=== PATIENT | female | born 1980 | race Caucasian/White ===

== ENCOUNTER → 2017-04-16 | Outpatient (CLI) | payer OTHER | END | disposition home or self-care (01) | LOC: C.RDSM 14:43 | PROVIDERS: ATTEND Physical Medicine & Rehabilitation Sports Medicine | DX: M25.561 Pain in right knee (principal) ==

== ENCOUNTER → 2017-05-13 | Outpatient (CLI) | payer OTHER ==
--- NOTE | 2017-05-13 17:13 | DIAGNOSTIC IMAGING REPORT ---
R LOWER EXT JOINT WITHOUT CLINICAL HISTORY: 36 years-old Female presenting with RIGHT KNEE PAIN. TECHNIQUE: Multisequence, multiplanar MR imaging of the right knee was performed without the use of intravenous contrast. IV contrast: None. COMPARISON: 04/22/2015. FINDINGS: Localizer images: 2 screw fixation through the proximal tibial metaphysis. Bone marrow: Focal cystic change in the tibial plateau subjacent to the insertion of the posterior cruciate ligament. Minimal cystic change noted more anteriorly in the interspinous region of the tibial plateau. No bony edema. Articular cartilage: Less than 50% thickness cartilage injury or thinning evident in the mid weightbearing portion of the medial femoral condyle and the apposing medial tibial plateau. Similar findings evidence at the mid to posterior weightbearing surface of the lateral femoral condyle without changes the apposing lateral tibial plateau. Full-thickness cartilage fissuring in the lateral trochlear facet with significant diffuse cartilage thinning at the patellofemoral articulation and prominent osteophytosis. Full-thickness cartilage loss of the majority of the lateral patellar facet. These findings have slightly progressed since the prior exam. Deep fissuring of the median prominence cartilage of the patella also noted. Menisci: Medial and lateral menisci intact. Cruciate ligaments: Anterior and posterior cruciate ligaments intact. Collateral ligament: Medial collateral ligament intact. Lateral collateral ligament complex including the biceps femoris tendon, fibular collateral ligament, popliteal tendon, and iliotibial band intact. Quadriceps and patellar tendons: Postsurgical changes of the reinsertion of the distal fibers the patellar tendon into the tibial plateau. The quadriceps and patellar tendons are intact. Knee joint effusion: Small knee joint effusion with possible mild synovitis. No popliteal cyst. Muscle: Normal muscle bulk and muscle signal intensity. Superficial soft tissues: Nonspecific edema in the infrapatellar region, which may in part relate to postsurgical change. IMPRESSION: 1. Interval progression of significant articular cartilage abnormalities in the patellofemoral compartment most severe in the lateral facet as detailed above. 2. More mild articular cartilage abnormalities of the mid to posterior weightbearing surface of the lateral femoral condyle and mid weightbearing surface of the medial compartment. 3. Two screw fixation through the proximal tibial metaphysis with postsurgical changes of reinsertion of the distal fibers of the patellar tendon. Patellar tendon intact. 4. Small knee joint effusion with possible mild synovitis. Electronically signed by: Dave Newby M.D. 05/13/2017 5:11 PM Dictated Date/Time: 05/13/2017 5:03 PM
== END | disposition home or self-care (01) ==
LOC: C.MRIBC 16:13
PROVIDERS: ATTEND Physician Assistant
DX: M17.11 Unilateral primary osteoarthritis, right knee (principal); M23.91 Unspecified internal derangement of right knee; M25.461 Effusion, right knee

== ENCOUNTER 2020-06-16 11:21 | Inpatient (IN) ==
--- NOTE | 2020-06-16 11:43 | Emergency Department Note ---
Impression & Plan Acute hypoxemic respiratory failure due to COVID-19, Pneumonia due to COVID-19 virus ED Provider Note NAME: LIVE TSANG AGE: 39 SEX: F : 1980 ARRIVES VIA: Walk-In INFORMANT: Patient, ED PROVIDER(S): Everette Moralez MD Chief Complaint: Shortness of breath, cough, COVID-19 HPI: Patient does present with the above symptoms. The patient states that she initially became symptomatic on the nd tested positive on the . The patient has had progressively worsening symptoms and was recently seen in the emergency department. The patient had been called in some steroids by her PCP but they were without directions the patient is not taking these. The patient did notice that her pulse oximetry was 89% today. The patient denies any prior heart or lung history. The patient has had cough but it is been fairly dry. No history of recent travel, DVT or PE. The patient denies any leg swelling recent surgeries or procedures. Patient has remote history of a right knee procedure years ago. Patient has had nausea but without vomiting. Patient said decreased p.o. intake and loss of taste or smell. Patient believes that she likely got it from her son who tested positive. The patient has been taking [id number] antipyretics. The patient had a low-grade temperature this morning. The pat ient did trial her inhalers but without improvement in her symptoms. ROS: See HPI for pertinent positives and negatives. A total of 10 systems were reviewed and otherwise negative. Past medical history: See below Surgical history: See below Social history: See below Physical Exam: GENERAL: Ill in appearance, wearing a mask. EYE EXAM: Normal conjunctiva. PERRL, no anisocoria and EOM's grossly intact w/o pain. NECK: Supple, no nuchal rigidity, no adenopathy, non-tender. No signs of meningismus. Not stridulous. LUNGS: Tachypnea noted, slight crackles noted. HEART: Tachycardic and regular, no MRG. ABDOMEN: Abdomen soft, non-tender, normo-active bowel sounds, no masses, no rebound or guarding. BACK: No CVA TTP. SKIN: No rashes and no bruising. UPPER EXTREMITIES: Upper extremities are grossly normal. LOWER EXTREMITIES: Grossly normal, no edema. NEURO EXAM: A&O x3, cranial nerves II-XII grossly intact, normal speech, moves all 4 extremities on command w/o issue. Differential diagnoses: Reactive airway disease, pneumonia, pneumothorax, COPD, CHF, infections, cardiac ischemia, pulmonary embolism, musculoskeletal, gastrointestinal, as well as other pathologies. Course: Patient was seen and evaluated the bedside. Full history physical exam was performed. EKG interpreted by me Indication: Shortness of breath Imaging Studies: See below Cardiac monitoring: An order was placed for continuous cardiac monitoring. The monitor shows a rate of 105 with sinus tachycardia rhythm. MDM: Patient was seen due to concern for shortness of breath and recent COVID-19 illness. The patient did have mild tachypnea primarily while trying to move in the bed as well as with speaking. At rest the patient's respiratory rate is improved. Patient had tried taking inhalers this morning but without much improvement. Given the patient's pulse oximetry of 89% at home blood work is obtained and the patient was treated symptomatically with Toradol, Tylenol, and dexamethasone. The patient was also given IV fluids. Repeat Covid testing obtained. Patient did have improvement in symptoms and tachypnea. Patient has a normal white count H&H and platelet count. Kidney function is unremarkable. Mild hypocalcemia. I did speak with the on-call hospitalist Dr. Perez with [facility] and the patient was admitted to the medicine service. Chest x-ray does show viral type pneumonia. 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 Beliefs That Will Affect Care: None Current Living Situation: Spouse and Family Other Information That Helps Us Care for You: Yes Feels Safe at Home: Yes Safety Concerns: Feels Safe At This Time Assistive Devices: Glasses Allergies Allergies Allergy/AdvReac Type Severity Reaction Status Date / Time Penicillins Allergy Intermediate Unknown Verified 06/14/20 19:21 sertraline Allergy Mild eyes dilate Verified 06/14/20 19:21 Home Meds Home Medications Medication Instructions Recorded Confirmed duloxetine 60 mg PO DAILY 06/10/20 06/16/20 lorazepam 0.5 mg PO BID PRN 06/10/20 06/16/20 acetaminophen [Tylenol Extra 1,000 mg PO Q6H PRN 06/14/20 06/16/20 Strength] ibuprofen [Advil] 200 mg PO Q6H PRN 06/14/20 06/16/20 Previous Rx's Medication Instructions Recorded albuterol sulfate 2 inh INHALATION Q6H PRN #8.5 g 06/10/20 ondansetron 4 mg PO Q8H PRN #12 tab 06/10/20 Results & Data (ED) Vital Signs Vital Signs - 24 hr 06/16/20 11:25 06/16/20 11:50 Temperature 35.9 C L Temperature Source Temporal Artery Scan Pulse Rate 117 H 72 Pulse Rhythm Regular Regular Pulse Strength Normal Respiratory Rate 40 H 20 Respiratory Effort / Characteristics Short of Breath Respiratory Depth Shallow Respiratory Pattern Tachypnea Blood Pressure 107/63 Blood Pressure Mean 77 Blood Pressure Position Sitting Pulse Oximetry 96 97 Oxygen Delivery Method Room Air Room Air Sepsis Recent Fever Within 48 Hours No Sepsis New/Unexplained Change in Mental Status No Sepsis Action Taken by Nursing Physician Notified Home Medications Current Medication List: was personally reviewed by me Laboratory Data Attestation: I reviewed the patient's lab results. Result diagrams: 06/16/20 12:24 06/16/20 12:24 Lab Results 06/16/20 06/16/20 Range/Units 12:24 12:24 WBC 5.88 (4.8-10.8) K/uL RBC 4.95 (4.2-5.4) M/uL Hgb 14.2 (12.0-16.0) g/dL Hct 41.1 (37-47) % MCV 83.0 (80-100) fL MCH 28.7 (25-34) pg MCHC 34.5 (32-36) g/dL RDW Std Deviation 43.4 (36.4-46.3) fL RDW Coeff of Rayo 14.3 (11.5-14.5) % Plt Count 187 (130-400) K/uL MPV 11.2 H (7.4-10.4) fL Immature Gran % (Auto) 0.2 % Neut % (Auto) 79.0 % Lymph % (Auto) 14.5 % [place] % (Auto) 5.8 % Eos % (Auto) 0.5 % Baso % (Auto) 0.0 % Neut # (Auto) 4.65 (1.4-6.5) K/uL Lymph # (Auto) 0.85 L (1.2-3.4) K/uL [place] # (Auto) 0.34 (0.11-0.59) K/uL Eos # (Auto) 0.03 (0-0.5) K/uL Baso # (Auto) 0.00 (0-0.2) K/uL Immature Gran # (Auto) 0.01 (0.00-0.02) K/uL Sodium 137 (136-145) mmol/L Potassium 4.1 (3.5-5.1) mmol/L Chloride 105 (98-107) mmol/L Carbon Dioxide 27 (21-32) mmol/L Anion Gap 5.0 (3-11) BUN 7 (7-18) mg/dl Creatinine 0.86 (0.6-1.2) mg/dl Est Cr Clr Drug Dosing Not Reportable Est GFR ( Amer) 100.0 Est GFR (Non-Af Amer) 86.3 BUN/Creatinine Ratio 8.0 L (10-20) Glucose 109 H (70-99) mg/dl Calcium 8.1 L (8.5-10.1) mg/dl Magnesium 2.3 (1.8-2.4) mg/dl Total Bilirubin 0.3 (0.2-1) mg/dl AST 40 H (15-37) U/L ALT 59 (12-78) U/L Alkaline Phosphatase 124 H (45-117) U/L Troponin I < 0.015 (0-0.045) ng/ml Total Protein 7.6 (6.4-8.2) gm/dl Albumin 3.2 L (3.4-5.0) gm/dl Globulin 4.4 H (2.5-4.0) gm/dl Albumin/Globulin Ratio 0.7 L (0.9-2) TSH 2.870 (0.300-4.500) uIu/ml Administered Medications Enoxaparin Sodium (Enoxaparin Inj 60 Mg/0.6 Ml Syr) 60 mg SQ Q12H XAVIER Stop: 07/16/20 15:59 Last Admin: 06/16/20 16:30 Dose: 60 mg Documented by: [id number] Pantoprazole Sodium (Pantoprazole 40 Mg Tab) 40 mg PO QAM XAVIER Stop: 07/16/20 14:44 Last Admin: 06/16/20 16:32 Dose: 40 mg Documented by: [id number] Discontinued Medications Acetaminophen (Acetaminophen 500 Mg Tab) 1,000 mg PO NOW STA Stop: 06/16/20 11:51 Last Admin: 06/16/20 12:17 Dose: 1,000 mg Documented by: [id number] Dexamethasone Sodium Phosphate (DexamethasonePf 10 Mg/Ml Vial) 6 mg IV NOW ONE Stop: 06/16/20 11:51 Last Admin: 06/16/20 12:18 Dose: 6 mg Documented by: [id number] Sodium Chloride (Nss 1000ml) 2,000 mls @ 999 mls/hr IV .Q2H1M XAVIER Stop: 06/16/20 14:00 Last Infusion: 06/16/20 15:40 Dose: 0 mls/hr Documented by: [id number] Admin: 06/16/20 12:17 Dose: 999 mls/hr Documented by: [id number] Ketorolac Tromethamine (Ketorolac 30 Mg/Ml Vial) 30 mg IV NOW STA Stop: 06/16/20 11:51 Last Admin: 06/16/20 12:18 Dose: 30 mg Documented by: [id number] Levalbuterol HCl (Levalbuterol 1.25mg/0.5ml Neb) 1.25 mg NEB Q6H XAVIER Stop: 07/16/20 14:29 Last Admin: 06/16/20 15:49 Dose: Not Given Documented by: [id number] Ondansetron HCl (Ondansetron Inj 2 Mg/Ml 2 Ml Vial) 4 mg IV NOW STA Stop: 06/16/20 11:51 Last Admin: 06/16/20 12:18 Dose: 4 mg Documented by: [id number] Imaging Data Radiologist's Impression: Chest X-Ray 06/16/20 11:50 XR chest 1V portable HISTORY: 39 years-old Female weakness acute weakness COMPARISON: Chest radiograph 06/14/2020, CTA chest 06/10/2020 TECHNIQUE: Portable AP view of the chest FINDINGS: Bilateral hilar prominence redemonstrated. Cardiac silhouette is upper limits of normal in size. Ill-defined bilateral interstitial opacities redemonstrated. No pneumothorax or pleural effusion. Bones appear grossly intact. IMPRESSION: 1. Unchanged ill-defined interstitial opacities suspicious for an interstitial pneumonitis. 2. Bilateral hilar prominence suggestive of adenopathy. ACT 112: Negative or not required by law. The above report was generated using voice recognition software. It may contain grammatical, syntax or spelling errors. Electronically signed by: Ángel Richardson M.D. 06/16/2020 12:25 PM Discharge Plan Visit Data Chief Complaint: Illness Stated Complaint: COVID +,SOB ED Provider: Everette Moralez Discharge Problem: Acute hypoxemic respiratory failure due to COVID-19, Pneumonia due to COVID-19 virus Patient Disposition: Admitted As Inpatient Discharge Instructions Interventions: ED Discharge Assessment Last Done: 06/16/20 15:09
[2020-06-16] MEDS ORDERED: dexAMETHasone**PF** 10 MG/ML VIAL IV ONE (11:50)
[2020-06-16] MEDS ORDERED: KETOROLAC 30 MG/ML VIAL IV STA (11:50)
[2020-06-16] MEDS ORDERED: ACETAMINOPHEN 500 MG TAB PO STA (11:50)
[2020-06-16] MEDS ORDERED: ONDANSETRON INJ 2 MG/ML 2 ML VIAL IV STA (11:50)
[2020-06-16] MEDS ORDERED: SODIUM CHLORIDE 0.9% 1000ML 2,000 ML IV SCH (12:00)
--- NOTE | 2020-06-16 12:27 | XRay Report ---
XR chest 1V portable HISTORY: 39 years-old Female weakness acute weakness COMPARISON: Chest radiograph 06/14/2020, CTA chest 06/10/2020 TECHNIQUE: Portable AP view of the chest FINDINGS: Bilateral hilar prominence redemonstrated. Cardiac silhouette is upper limits of normal in size. Ill- defined bilateral interstitial opacities redemonstrated. No pneumothorax or pleural effusion. Bones a ppear grossly intact. IMPRESSION: 1. Unchanged ill-defined interstitial opacities suspicious for an interstitial pneumonitis. 2. Bilateral hilar prominence suggestive of adenopathy. ACT 112: Negative or not required by law. The above report was generated using voice recognition software. It may contain grammatical, syntax o r spelling errors. Electronically signed by: Ángel Richardson M.D. 06/16/2020 12:25 PM
[2020-06-16 12:42] LABS: Eosinophils # (auto) 0.03 K/uL (0-0.5); Eosinophils % (auto) 0.5 %; Hematocrit (blood only) 41.1 % (37-47); Hemoglobin 14.2 g/dL (12.0-16.0); Immature Granulocytes # (auto) 0.01 K/uL (0.00-0.02); Immature Granulocytes % (auto) 0.2 %; Lymphocytes # (auto) 0.85 K/uL (1.2-3.4); Lymphocytes % (auto) 14.5 %; Mean Corpuscular Hemoglobin 28.7 pg (25-34); Mean Corpuscular Hgb Conc 34.5 g/dL (32-36); Mean Platelet Volume 11.2 fL (7.4-10.4); Monocytes # (auto) 0.34 K/uL (0.11-0.59); Monocytes % (auto) 5.8 %; Neutrophils # (auto) 4.65 K/uL (1.4-6.5); Platelet Count 187 K/uL (130-400); RDW Coefficient of Variation 14.3 % (11.5-14.5); RDW Standard Deviation 43.4 fL (36.4-46.3); Red Blood Count 4.95 M/uL (4.2-5.4); White Blood Count 5.88 K/uL (4.8-10.8)
[2020-06-16 13:02] LABS: Albumin Level 3.2 gm/dl (3.4-5.0); Blood Urea Nitrogen 7 mg/dl (7-18); Calcium 8.1 mg/dl (8.5-10.1); Carbon Dioxide 27 mmol/L (21-32); Chloride 105 mmol/L (98-107); Est GFR (Non-African American) 86.3; Glucose 109 mg/dl (70-99); Magnesium 2.3 mg/dl (1.8-2.4); Potassium 4.1 mmol/L (3.5-5.1); Sodium 137 mmol/L (136-145)
[2020-06-16 13:13] LABS: Alanine Aminotransferase 59 U/L (12-78); Albumin Globulin Ratio 0.7 (0.9-2); Alkaline Phosphatase 124 U/L (45-117); Aspartate Aminotransferase 40 U/L (15-37); Bilirubin,Total 0.3 mg/dl (0.2-1); Globulin 4.4 gm/dl (2.5-4.0); Total Protein 7.6 gm/dl (6.4-8.2); Troponin I < 0.015 ng/ml (0-0.045)
[2020-06-16 13:41] LABS: Influenza A virus by PCR Negative (Neg); Influenza B virus by PCR Negative (Neg); RSV by PCR Negative (Neg)
[2020-06-16 13:46] LABS: SARS CoV2 RNA(COVID-19) InHosp POSITIVE (Negative)
[2020-06-16] MEDS ORDERED: POLYETHYLENE (MIRALAX) 17 GM PACK PO PRN (14:17)
[2020-06-16] MEDS ORDERED: ONDANSETRON INJ 2 MG/ML 2 ML VIAL IV PRN (14:17)
[2020-06-16] MEDS ORDERED: LEVALBUTEROL 1.25MG/0.5ML NEB NEB SCH (14:30)
[2020-06-16] MEDS ORDERED: PANTOprazole 40 MG TAB PO STA (15:22)
--- NOTE | 2020-06-16 15:23 | History & Physical Report ---
Date of Service June 16, 2020 Assessment & Plan (1) Acute hypoxemic respiratory failure: (2) Pneumonia due to COVID-19 virus: Patient presented with Respiratory symptoms, Weakness, cough, fevers on June 06 Was tested is positive for Covid on June 10 CT PE obtained in the ED on June 10, negative for PE Lung imaging with interstitial opacities, consistent with viral pneumonia Now presents due to worsening symptoms Received Decadron in the ED, will continue for up to 10 days While on steroids, will give PPI At home had a coughing fit, and reportedly desaturated to high 80s. Currently saturating 95% on room air Symptoms since June 06, and saturating on room air well, no remdesivir Will check procalcitonin, to evaluate the need for antibiotic Check inflammatory markers, and trend Encourage incentive spirometry, flutter valve, provide guaifenesin DuoNebs Lovenox 60 twice daily Continue to closely monitor, use supplemental oxygen as needed to keep O2 sats at or above 92% (3) Nausea: -Seems to be secondary to above infection -Given Zofran in the ED, provide Zofran as needed (4) MATTY (generalized anxiety disorder): -Continue home duloxetine Morbid obesity BMI above 40 Counseling and lifestyle education recommended Follow-up with PCP DVT prophylaxis: Lovenox Dispo: Med telemetry CODE STATUS full History of Present Illness Chief Complaint: shortness of breath, COVID 19 pna Primary Care Provider: Scott Ley DO Mrs. Craig is a 39-year-old female, with history of generalized anxiety disorder, obesity, who presents in the ED due to shortness of breath and known COVID-19 infection. She has had respiratory symptoms, fever, nausea and weakness associated with COVID-19 infection since June 06. She was tested positive for COVID-19 on June 10 in the ED. At that time chest x-ray and CT PE was obtained. CT PE was negative for pulmonary emboli and her lung imaging was consistent with viral pneumonia. She was discharged home, notified her PCP and prednisone was also prescribed for the patient. However patient reports not having instructions for prednisone and therefore she never took it. In the ED she was prescribed albuterol inhaler and reports that it's been helping her however sometimes she feels too weak to use the inhaler. She says she is has better days and some worse days, this morning was really bad for her as she was quite dyspneic, had a coughing fit, desaturated into high 80s. She then contacted her PCP's office again and was recommended to present to the ED. In the emergency room chest x-ray was repeated again and showed unchanged ill- defined interstitial opacities suspicious for interstitial pneumonitis, bilateral hilar prominence suggestive of adenopathy. She was started on Decadron, also was given Tylenol, Zofran and Toradol and IV fluids. Reportedly she was quite tachypneic, had conversational dyspnea, and also reported nausea. Currently she says that she feels better. And reports breathing is easier. Allergies Allergy/AdvReac Type Severity Reaction Status Date / Time Penicillins Allergy Intermediate Unknown Verified 06/14/20 19:21 sertraline Allergy Mild eyes dilate Verified 06/14/20 19:21 Home Medications Medication Instructions Recorded Confirmed Type albuterol sulfate 2 inh INHALATION Q6H PRN #8.5 g 06/10/20 06/16/20 Rx duloxetine 60 mg PO DAILY 06/10/20 06/16/20 History lorazepam 0.5 mg PO BID PRN 06/10/20 06/16/20 History ondansetron 4 mg PO Q8H PRN #12 tab 06/10/20 06/16/20 Rx acetaminophen [Tylenol Extra 1,000 mg PO Q6H PRN 06/14/20 06/16/20 History Strength] ibuprofen [Advil] 200 mg PO Q6H PRN 06/14/20 06/16/20 History Past Med/Surg History Medical History (Updated 06/16/20 @ 15:30 by Phu Perez MD) Concussion COVID-19 MATTY (generalized anxiety disorder) Surgical History (Updated 06/16/20 @ 15:20 by Phu Perez MD) History of knee surgery Hx of section Hx of tubal ligation Family History (Updated 06/16/20 @ 15:20 by Phu Perez MD) Other Diabetes Social History Smoking Status: Never smoker Second Hand Exposure: No; Do You Dip or Chew Tobacco: No; Tobacco Cessation Education Requested by Patient: No Hx Alcohol Use: No Hx Substance Use: No Preferred Language: Tuvaluan Communication Ability: Effective Advertising Strategist Required: No Beliefs That Will Affect Care: None Current Living Situation: Spouse and Family Other Information That Helps Us Care for You: Yes Feels Safe at Home: Yes Safety Concerns: Feels Safe At This Time Assistive Devices: Glasses Review of Systems Review of Systems: All systems reviewed & are unremarkable except as noted in HPI & below Constitutional: + fever Eyes: no problem reported Ear, Nose, Mouth, Throat: no problem reported Respiratory: + cough and + dyspnea Cardiovascular: no chest pain, no palpitations and no edema Gastrointestinal: + nausea; no abdominal pain and no vomiting Genitourinary: no problem reported Musculoskeletal: no problem reported Integumentary: no problem reported Neurologic: no problem reported Psychiatric: no problem reported Endocrine: no problem reported Hematologic / Lymphatic: no problem reported Allergy / Immunological: no problem reported Physical Exam Constitutional: WD/WN, vitals as above + obese; no acute distress Eyes: PERRL, conjunctivae normal, anicteric sclerae ENMT: external ear and nose normal, oropharynx normal Neck: trachea midline, no thyromegaly normal visual inspection and + thick neck Respiratory: normal respiratory effort, lungs clear to auscultation no respiratory distress and does not use accessory muscles Auscultation: + rhonchi (mild diffuse); no crackles and no wheezes Cardiovascular: RRR, no murmur, no edema Chest (Breasts): Chest: normal inspection of chest Gastrointestinal (Abdomen): Inspection/Auscultation: abdomen normal to inspection (+ obese abdomen) and normal bowel sounds; abdomen not distended Percussion/Palpation: abdomen soft; abdomen nontender, no guarding and abdomen not rigid Musculoskeletal: Head/Neck/Chest: normocephalic, head atraumatic and neck supple Skin: no rashes, warm and dry Neurologic: PERRL, EOMI, accommodation nl, no face palsy, no dysarthria moves all extremities Psychiatric: A+Ox3, euthymic affect Genitourinary: no CVA tenderness Lymphatic: no lymphedema Results & Data Results & Data ([facility]) Vital Signs (Past 12 Hours) Vital Signs Temp Pulse Pulse Resp BP BP Pulse Ox 06/16/20 15:09 75 20 120/77 97 06/16/20 14:50 74 20 120/77 96 06/16/20 11:50 72 20 97 06/16/20 11:25 35.9 C L 117 H 40 H 107/63 96 Laboratory Results 06/16/20 06/16/20 06/16/20 Range/Units Unknown Unknown 12:24 WBC (4.8-10.8) K/uL RBC (4.2-5.4) M/uL Hgb (12.0-16.0) g/dL Hct (37-47) % MCV (80-100) fL MCH (25-34) pg MCHC (32-36) g/dL RDW Std Deviation (36.4-46.3) fL RDW Coeff of Rayo (11.5-14.5) % Plt Count (130-400) K/uL MPV (7.4-10.4) fL Immature Gran % (Auto) % Neut % (Auto) % Lymph % (Auto) % [place] % (Auto) % Eos % (Auto) % Baso % (Auto) % Neut # (Auto) (1.4-6.5) K/uL Lymph # (Auto) (1.2-3.4) K/uL [place] # (Auto) (0.11-0.59) K/uL Eos # (Auto) (0-0.5) K/uL Baso # (Auto) (0-0.2) K/uL Immature Gran # (Auto) (0.00-0.02) K/uL Sodium 137 (136-145) mmol/L Potassium 4.1 (3.5-5.1) mmol/L Chloride 105 (98-107) mmol/L Carbon Dioxide 27 (21-32) mmol/L Anion Gap 5.0 (3-11) BUN 7 (7-18) mg/dl Creatinine 0.86 (0.6-1.2) mg/dl Est Cr Clr Drug Dosing Not Reportable Est GFR ( Amer) 100.0 Est GFR (Non-Af Amer) 86.3 BUN/Creatinine Ratio 8.0 L (10-20) Glucose 109 H (70-99) mg/dl Calcium 8.1 L (8.5-10.1) mg/dl Magnesium 2.3 (1.8-2.4) mg/dl Total Bilirubin 0.3 (0.2-1) mg/dl AST 40 H (15-37) U/L ALT 59 (12-78) U/L Alkaline Phosphatase 124 H (45-117) U/L Troponin I < 0.015 (0-0.045) ng/ml Total Protein 7.6 (6.4-8.2) gm/dl Albumin 3.2 L (3.4-5.0) gm/dl Globulin 4.4 H (2.5-4.0) gm/dl Albumin/Globulin Ratio 0.7 L (0.9-2) TSH 2.870 (0.300-4.500) uIu/ml COVID-19 Eval Order CovFluRsv at [facility] SARS-CoV-2 (PCR) POSITIVE A* (Negative) Influenza Type A (PCR) Negative (Neg) Influenza Type B (PCR) Negative (Neg) RSV (RT-PCR) Negative (Neg) 06/16/20 Range/Units 12:24 WBC 5.88 (4.8-10.8) K/uL RBC 4.95 (4.2-5.4) M/uL Hgb 14.2 (12.0-16.0) g/dL Hct 41.1 (37-47) % MCV 83.0 (80-100) fL MCH 28.7 (25-34) pg MCHC 34.5 (32-36) g/dL RDW Std Deviation 43.4 (36.4-46.3) fL RDW Coeff of Rayo 14.3 (11.5-14.5) % Plt Count 187 (130-400) K/uL MPV 11.2 H (7.4-10.4) fL Immature Gran % (Auto) 0.2 % Neut % (Auto) 79.0 % Lymph % (Auto) 14.5 % [place] % (Auto) 5.8 % Eos % (Auto) 0.5 % Baso % (Auto) 0.0 % Neut # (Auto) 4.65 (1.4-6.5) K/uL Lymph # (Auto) 0.85 L (1.2-3.4) K/uL [place] # (Auto) 0.34 (0.11-0.59) K/uL Eos # (Auto) 0.03 (0-0.5) K/uL Baso # (Auto) 0.00 (0-0.2) K/uL Immature Gran # (Auto) 0.01 (0.00-0.02) K/uL Sodium (136-145) mmol/L Potassium (3.5-5.1) mmol/L Chloride (98-107) mmol/L Carbon Dioxide (21-32) mmol/L Anion Gap (3-11) BUN (7-18) mg/dl Creatinine (0.6-1.2) mg/dl Est Cr Clr Drug Dosing Est GFR ( Amer) Est GFR (Non-Af Amer) BUN/Creatinine Ratio (10-20) Glucose (70-99) mg/dl Calcium (8.5-10.1) mg/dl Magnesium (1.8-2.4) mg/dl Total Bilirubin (0.2-1) mg/dl AST (15-37) U/L ALT (12-78) U/L Alkaline Phosphatase (45-117) U/L Troponin I (0-0.045) ng/ml Total Protein (6.4-8.2) gm/dl Albumin (3.4-5.0) gm/dl Globulin (2.5-4.0) gm/dl Albumin/Globulin Ratio (0.9-2) TSH (0.300-4.500) uIu/ml COVID-19 Eval Order SARS-CoV-2 (PCR) (Negative) Influenza Type A (PCR) (Neg) Influenza Type B (PCR) (Neg) RSV (RT-PCR) (Neg) Diagnostic Findings CXR 06/16/20 IMPRESSION: 1. Unchanged ill-defined interstitial opacities suspicious for an interstitial pneumonitis. 2. Bilateral hilar prominence suggestive of adenopathy. CT PE 06/10 FINDINGS: CTA: The heart is normal in size. Trace pericardial effusion. No thoracic aortic aneurysm or dissection. The pulmonary arterial tree is opacified to the level of the proximal subsegmental branches and demonstrates no filling defects to suggest thromboembolic disease. CT CHEST: Hyperdense 7 mm nodule of the inferior left thyroid. No adenopathy. No pneumothorax, pleural effusion, airspace consolidation or overt pulmonary edema. There are no suspicious pulmonary nodules or masses. Central airways are patent. Peritoneum. No acute process of the imaged upper abdomen. Enlarged spleen measures 14.3 cm. Suggested hepatic steatosis. Unremarkable soft tissues. No acute fracture. IMPRESSION: 1. No acute intrathoracic abnormality, specifically there are no pulmonary emboli identified. 2. No pleural effusion, adenopathy or airspace consolidation. 3. Mild splenomegaly. Medications Administered Current Inpatient Medications Acetaminophen (Acetaminophen 325 Mg Tab) 650 mg PO Q4H PRN PRN Reason: Pain or Fever Stop: 07/16/20 14:16 Enoxaparin Sodium (Enoxaparin Inj 60 Mg/0.6 Ml Syr) 60 mg SQ Q12H [facility] Stop: 07/16/20 15:29 Guaifenesin (Guaifenesin 600 Mg Tabcr) 600 mg PO Q12 [facility] Stop: 07/16/20 20:59 Dexamethasone 6 mg/ Syringe 1.5 mls @ 1 mls/min IV Q24H [facility] Stop: 07/17/20 08:59 Levalbuterol HCl (Levalbuterol 1.25mg/0.5ml Neb) 1.25 mg NEB Q6H [facility] Stop: 07/16/20 14:29 Ondansetron HCl (Ondansetron Inj 2 Mg/Ml 2 Ml Vial) 2 mg IV Q4H PRN PRN Reason: Nausea Stop: 07/16/20 14:16 Pantoprazole Sodium (Pantoprazole 40 Mg Tab) 40 mg PO QAM [facility] Stop: 07/16/20 14:44 Pantoprazole Sodium (Pantoprazole 40 Mg Tab) 40 mg PO NOW STA Stop: 06/16/20 15:23 Polyethylene Glycol (Polyethylene (Miralax) 17 Gm Pack) 17 gm PO DAILY PRN PRN Reason: Constipation Stop: 07/16/20 14:16
[2020-06-16] MEDS: ENOXAPARIN INJ 60 MG/0.6 ML SYR SQ SCH (16:30)
[2020-06-16] MEDS: PANTOprazole 40 MG TAB PO SCH (16:32)
[2020-06-16] MEDS: LEVALBUTEROL HCL 1.25 MG/3 ML NEB NEB SCH (19:27)
[2020-06-16] MEDS: DULoxetine HCL 60 MG CAP PO SCH (20:38)
[2020-06-16] MEDS: guaiFENesin 600 MG TABCR PO SCH (20:38)
--- NOTE | 2020-06-16 22:58 | Electrocardiogram Report ---
Test Reason : Blood Pressure : / mmHG Vent. Rate : 084 BPM Atrial Rate : 084 BPM P-R Int : 176 ms QRS Dur : 094 ms QT Int : 368 ms P-R-T Axes : 018 013 022 degrees QTc Int : 434 ms Normal sinus rhythm Normal ECG When compared with ECG of 10-JUN-2020 12:44, No significant change Confirmed by Bryce Klein ([id number]) on 06/16/2020 10:58:08 PM Referred By: REFERRED SELF Confirmed By:Bryce Klein
[2020-06-17] MEDS: ACETAMINOPHEN 325 MG TAB PO PRN ×2 (01:01→20:49)
[2020-06-17] MEDS: LEVALBUTEROL HCL 1.25 MG/3 ML NEB NEB SCH ×5 (01:02→19:26)
[2020-06-17] MEDS: ENOXAPARIN INJ 60 MG/0.6 ML SYR SQ SCH ×2 (04:30→16:45)
[2020-06-17] MEDS: LORazepam 0.5 MG TAB PO PRN ×2 (04:32→20:49)
[2020-06-17 06:11] LABS: Hematocrit (blood only) 38.3 % (37-47); Hemoglobin 12.7 g/dL (12.0-16.0); Mean Corpuscular Hemoglobin 27.4 pg (25-34); Mean Corpuscular Hgb Conc 33.2 g/dL (32-36); Mean Corpuscular Volume 82.7 fL (80-100); Mean Platelet Volume 11.5 fL (7.4-10.4); Platelet Count 196 K/uL (130-400); RDW Coefficient of Variation 14.2 % (11.5-14.5); RDW Standard Deviation 42.7 fL (36.4-46.3); Red Blood Count 4.63 M/uL (4.2-5.4); White Blood Count 6.17 K/uL (4.8-10.8)
[2020-06-17 06:51] LABS: BUN Creatinine Ratio 15.2 (10-20); Calcium 8.2 mg/dl (8.5-10.1); Creatinine Clr Calc Pharmacy 125.4 ml/min; Est GFR (African American) 114.3; Est GFR (Non-African American) 98.6; Potassium 3.8 mmol/L (3.5-5.1)
[2020-06-17 06:52] LABS: C Reactive Protein 3.37 mg/dl (0-0.29)
[2020-06-17] MEDS: guaiFENesin 600 MG TABCR PO SCH ×2 (08:18→20:48)
[2020-06-17] MEDS: PANTOprazole 40 MG TAB PO SCH (08:19)
[2020-06-17] MEDS: dexAMETHasone 6 MG in SYRINGE 0 ML IV SCH (08:19)
[2020-06-17] MEDS: DULoxetine HCL 60 MG CAP PO SCH (10:05)
--- NOTE | 2020-06-17 12:21 | Hospitalist Progress Note ---
Date of Service June 17, 2020 Assessment & Plan (1) Acute hypoxemic respiratory failure: (2) Pneumonia due to COVID-19 virus: Patient presented with Respiratory symptoms, Weakness, cough, fevers on June 06 Was tested positive for Covid on June 10 CT PE obtained in the ED on June 10, negative for PE Lung imaging with interstitial opacities, consistent with viral pneumonia Now presents due to worsening symptoms Received Decadron in the ED, will continue for up to 10 days While on steroids, will give PPI At home had a coughing fit, and reportedly desaturated to high 80s. Currently saturating in 90s% on room air Symptoms since June 06, and saturating on room air well, no remdesivir procalcitonin negative inflammatory markers elevated Encourage incentive spirometry, flutter valve, provide guaifenesin DuoNebs Lovenox 60 twice daily Continue to closely monitor, use supplemental oxygen as needed to keep O2 sats at or above 92% (3) Nausea: -Seems to be secondary to above infection -Given Zofran in the ED, provide Zofran as needed - now resolved (4) MATTY (generalized anxiety disorder): -Continue home duloxetine Morbid obesity BMI above 40 Counseling and lifestyle education recommended Follow-up with PCP DVT prophylaxis: Lovenox Dispo: Med telemetry CODE STATUS full Admission and Anticipated Discharge Date Admission Date: June 16, 2020 Subjective Patient seen in follow-up of COVID-19 pneumonia, hypoxia, fever She is feeling better, has poor appetite but improved, however continues to have coughing spells especially with any small ambulation No chest pain no abdominal pain Review of Systems Review of Systems: All systems reviewed & are unremarkable except as noted in HPI & below Respiratory: + cough and + dyspnea (improved) Cardiovascular: no chest pain and no palpitations Gastrointestinal: no abdominal pain, no nausea and no vomiting Physical Exam Constitutional: WD/WN, vitals as above + obese; no acute distress Eyes: PERRL, conjunctivae normal, anicteric sclerae ENMT: external ear and nose normal, oropharynx normal Neck: trachea midline, no thyromegaly normal visual inspection and + thick neck Respiratory: normal respiratory effort, lungs clear to auscultation no respiratory distress and does not use accessory muscles Auscultation: + rhonchi (mild diffuse); no crackles and no wheezes Cardiovascular: RRR, no murmur, no edema Chest (Breasts): Chest: normal inspection of chest Gastrointestinal (Abdomen): Inspection/Auscultation: abdomen normal to inspection (+ obese abdomen) and normal bowel sounds; abdomen not distended Percussion/Palpation: abdomen soft; abdomen nontender, no guarding and abdomen not rigid Musculoskeletal: Head/Neck/Chest: normocephalic, head atraumatic and neck supple Skin: no rashes, warm and dry Neurologic: PERRL, EOMI, accommodation nl, no face palsy, no dysarthria moves all extremities Psychiatric: A+Ox3, euthymic affect Genitourinary: no CVA tenderness Lymphatic: no lymphedema Results & Data Results & Data ([facility]) Vital Signs (Past 12 Hours) Vital Signs Temp Pulse Resp BP Pulse Ox 06/17/20 11:06 98 H 23 92 06/17/20 10:46 37.7 C H 98 H 20 118/86 92 06/17/20 08:21 37.4 C 84 20 124/84 94 06/17/20 07:10 81 17 96 06/17/20 04:25 37.4 C 80 18 132/86 96 06/17/20 01:03 80 24 97 Laboratory Results 06/17/20 06/17/20 06/17/20 Range/Units 05:37 05:37 05:37 WBC (4.8-10.8) K/uL RBC (4.2-5.4) M/uL Hgb (12.0-16.0) g/dL Hct (37-47) % MCV (80-100) fL MCH (25-34) pg MCHC (32-36) g/dL RDW Std Deviation (36.4-46.3) fL RDW Coeff of Rayo (11.5-14.5) % Plt Count (130-400) K/uL MPV (7.4-10.4) fL Immature Gran % (Auto) % Neut % (Auto) % Lymph % (Auto) % [place] % (Auto) % Eos % (Auto) % Baso % (Auto) % Neut # (Auto) (1.4-6.5) K/uL Lymph # (Auto) (1.2-3.4) K/uL [place] # (Auto) (0.11-0.59) K/uL Eos # (Auto) (0-0.5) K/uL Baso # (Auto) (0-0.2) K/uL Immature Gran # (Auto) (0.00-0.02) K/uL ESR 39 H (0-20) mm/hr Sodium 138 (136-145) mmol/L Potassium 3.8 (3.5-5.1) mmol/L Chloride 108 H (98-107) mmol/L Carbon Dioxide 25 (21-32) mmol/L Anion Gap 5.0 (3-11) BUN 12 D (7-18) mg/dl Creatinine 0.77 (0.6-1.2) mg/dl Est Cr Clr Drug Dosing 125.4 Est GFR ( Amer) 114.3 Est GFR (Non-Af Amer) 98.6 BUN/Creatinine Ratio 15.2 (10-20) Glucose 150 H (70-99) mg/dl Calcium 8.2 L (8.5-10.1) mg/dl Magnesium (1.8-2.4) mg/dl Total Bilirubin (0.2-1) mg/dl AST (15-37) U/L ALT (12-78) U/L Alkaline Phosphatase (45-117) U/L Troponin I (0-0.045) ng/ml C-Reactive Protein 3.37 H (0-0.29) mg/dl Total Protein (6.4-8.2) gm/dl Albumin (3.4-5.0) gm/dl Globulin (2.5-4.0) gm/dl Albumin/Globulin Ratio (0.9-2) Procalcitonin < 0.05 (0-0.5) ng/ml TSH (0.300-4.500) uIu/ml COVID-19 Eval Order SARS-CoV-2 (PCR) (Negative) Influenza Type A (PCR) (Neg) Influenza Type B (PCR) (Neg) RSV (RT-PCR) (Neg) 06/17/20 06/16/20 06/16/20 Range/Units 05:37 Unknown Unknown WBC 6.17 (4.8-10.8) K/uL RBC 4.63 (4.2-5.4) M/uL Hgb 12.7 (12.0-16.0) g/dL Hct 38.3 (37-47) % MCV 82.7 (80-100) fL MCH 27.4 (25-34) pg MCHC 33.2 (32-36) g/dL RDW Std Deviation 42.7 (36.4-46.3) fL RDW Coeff of Rayo 14.2 (11.5-14.5) % Plt Count 196 (130-400) K/uL MPV 11.5 H (7.4-10.4) fL Immature Gran % (Auto) % Neut % (Auto) % Lymph % (Auto) % [place] % (Auto) % Eos % (Auto) % Baso % (Auto) % Neut # (Auto) (1.4-6.5) K/uL Lymph # (Auto) (1.2-3.4) K/uL [place] # (Auto) (0.11-0.59) K/uL Eos # (Auto) (0-0.5) K/uL Baso # (Auto) (0-0.2) K/uL Immature Gran # (Auto) (0.00-0.02) K/uL ESR (0-20) mm/hr Sodium (136-145) mmol/L Potassium (3.5-5.1) mmol/L Chloride (98-107) mmol/L Carbon Dioxide (21-32) mmol/L Anion Gap (3-11) BUN (7-18) mg/dl Creatinine (0.6-1.2) mg/dl Est Cr Clr Drug Dosing Est GFR ( Amer) Est GFR (Non-Af Amer) BUN/Creatinine Ratio (10-20) Glucose (70-99) mg/dl Calcium (8.5-10.1) mg/dl Magnesium (1.8-2.4) mg/dl Total Bilirubin (0.2-1) mg/dl AST (15-37) U/L ALT (12-78) U/L Alkaline Phosphatase (45-117) U/L Troponin I (0-0.045) ng/ml C-Reactive Protein (0-0.29) mg/dl Total Protein (6.4-8.2) gm/dl Albumin (3.4-5.0) gm/dl Globulin (2.5-4.0) gm/dl Albumin/Globulin Ratio (0.9-2) Procalcitonin (0-0.5) ng/ml TSH (0.300-4.500) uIu/ml COVID-19 Eval Order CovFluRsv at [facility] SARS-CoV-2 (PCR) POSITIVE A* (Negative) Influenza Type A (PCR) Negative (Neg) Influenza Type B (PCR) Negative (Neg) RSV (RT-PCR) Negative (Neg) 06/16/20 06/16/20 06/16/20 Range/Units 15:15 12:24 12:24 WBC 5.88 (4.8-10.8) K/uL RBC 4.95 (4.2-5.4) M/uL Hgb 14.2 (12.0-16.0) g/dL Hct 41.1 (37-47) % MCV 83.0 (80-100) fL MCH 28.7 (25-34) pg MCHC 34.5 (32-36) g/dL RDW Std Deviation 43.4 (36.4-46.3) fL RDW Coeff of Rayo 14.3 (11.5-14.5) % Plt Count 187 (130-400) K/uL MPV 11.2 H (7.4-10.4) fL Immature Gran % (Auto) 0.2 % Neut % (Auto) 79.0 % Lymph % (Auto) 14.5 % [place] % (Auto) 5.8 % Eos % (Auto) 0.5 % Baso % (Auto) 0.0 % Neut # (Auto) 4.65 (1.4-6.5) K/uL Lymph # (Auto) 0.85 L (1.2-3.4) K/uL [place] # (Auto) 0.34 (0.11-0.59) K/uL Eos # (Auto) 0.03 (0-0.5) K/uL Baso # (Auto) 0.00 (0-0.2) K/uL Immature Gran # (Auto) 0.01 (0.00-0.02) K/uL ESR (0-20) mm/hr Sodium 137 (136-145) mmol/L Potassium 4.1 (3.5-5.1) mmol/L Chloride 105 (98-107) mmol/L Carbon Dioxide 27 (21-32) mmol/L Anion Gap 5.0 (3-11) BUN 7 (7-18) mg/dl Creatinine 0.86 (0.6-1.2) mg/dl Est Cr Clr Drug Dosing Not Reportable Est GFR ( Amer) 100.0 Est GFR (Non-Af Amer) 86.3 BUN/Creatinine Ratio 8.0 L (10-20) Glucose 109 H (70-99) mg/dl Calcium 8.1 L (8.5-10.1) mg/dl Magnesium 2.3 (1.8-2.4) mg/dl Total Bilirubin 0.3 (0.2-1) mg/dl AST 40 H (15-37) U/L ALT 59 (12-78) U/L Alkaline Phosphatase 124 H (45-117) U/L Troponin I < 0.015 (0-0.045) ng/ml C-Reactive Protein (0-0.29) mg/dl Total Protein 7.6 (6.4-8.2) gm/dl Albumin 3.2 L (3.4-5.0) gm/dl Globulin 4.4 H (2.5-4.0) gm/dl Albumin/Globulin Ratio 0.7 L (0.9-2) Procalcitonin < 0.05 (0-0.5) ng/ml TSH 2.870 (0.300-4.500) uIu/ml COVID-19 Eval Order SARS-CoV-2 (PCR) (Negative) Influenza Type A (PCR) (Neg) Influenza Type B (PCR) (Neg) RSV (RT-PCR) (Neg) Medications Administered Current Inpatient Medications Acetaminophen (Acetaminophen 325 Mg Tab) 650 mg PO Q4H PRN PRN Reason: Pain or Fever Stop: 07/16/20 14:16 Last Admin: 06/17/20 01:01 Dose: 650 mg Documented by: Duloxetine HCl (Duloxetine Hcl 60 Mg Cap) 60 mg PO DAILY [facility] Stop: 07/17/20 08:59 Last Admin: 06/16/20 20:38 Dose: 60 mg Documented by: Enoxaparin Sodium (Enoxaparin Inj 60 Mg/0.6 Ml Syr) 60 mg SQ Q12H [facility] Stop: 07/16/20 15:59 Last Admin: 06/17/20 04:30 Dose: 60 mg Documented by: Guaifenesin (Guaifenesin 600 Mg Tabcr) 600 mg PO Q12 [facility] Stop: 07/16/20 20:59 Last Admin: 06/17/20 08:18 Dose: 600 mg Documented by: Dexamethasone 6 mg/ Syringe 1.5 mls @ 1 mls/min IV Q24H [facility] Stop: 07/17/20 08:59 Last Admin: 06/17/20 08:19 Dose: 1 mls/min Documented by: Levalbuterol HCl (Levalbuterol Hcl 1.25 Mg/3 Ml Neb) 1.25 mg NEB QIDR [facility] Stop: 07/17/20 10:59 Last Admin: 06/17/20 11:06 Dose: 1.25 mg Documented by: Lorazepam (Lorazepam 0.5 Mg Tab) 0.5 mg PO BID PRN PRN Reason: Anxiety Stop: 07/16/20 15:28 Last Admin: 06/17/20 04:32 Dose: 0.5 mg Documented by: Ondansetron HCl (Ondansetron Inj 2 Mg/Ml 2 Ml Vial) 2 mg IV Q4H PRN PRN Reason: Nausea Stop: 07/16/20 14:16 Pantoprazole Sodium (Pantoprazole 40 Mg Tab) 40 mg PO QAM [facility] Stop: 07/16/20 14:44 Last Admin: 06/17/20 08:19 Dose: 40 mg Documented by: Polyethylene Glycol (Polyethylene (Miralax) 17 Gm Pack) 17 gm PO DAILY PRN PRN Reason: Constipation Stop: 07/16/20 14:16
[2020-06-18] MEDS: ENOXAPARIN INJ 60 MG/0.6 ML SYR SQ SCH ×2 (04:25→16:01)
[2020-06-18 07:02] LABS: Hematocrit (blood only) 37.9 % (37-47); Hemoglobin 12.5 g/dL (12.0-16.0); Mean Corpuscular Hemoglobin 27.7 pg (25-34); Mean Corpuscular Volume 83.8 fL (80-100); Mean Platelet Volume 11.2 fL (7.4-10.4); Platelet Count 220 K/uL (130-400); RDW Coefficient of Variation 14.5 % (11.5-14.5); RDW Standard Deviation 44.9 fL (36.4-46.3); Red Blood Count 4.52 M/uL (4.2-5.4); White Blood Count 8.07 K/uL (4.8-10.8)
[2020-06-18] MEDS: LEVALBUTEROL HCL 1.25 MG/3 ML NEB NEB SCH ×4 (07:11→19:41)
[2020-06-18] MEDS: ACETAMINOPHEN 325 MG TAB PO PRN ×2 (07:23→22:11)
[2020-06-18] MEDS: guaiFENesin 600 MG TABCR PO SCH ×2 (07:24→20:19)
[2020-06-18] MEDS: DULoxetine HCL 60 MG CAP PO SCH (07:24)
[2020-06-18] MEDS: PANTOprazole 40 MG TAB PO SCH (07:24)
[2020-06-18] MEDS: dexAMETHasone 6 MG in SYRINGE 0 ML IV SCH (07:27)
[2020-06-18] MEDS: LORazepam 0.5 MG TAB PO PRN ×2 (07:27→22:11)
--- NOTE | 2020-06-18 07:30 | Hospitalist Progress Note ---
Date of Service June 18, 2020 Assessment & Plan (1) Acute hypoxemic respiratory failure: (2) Pneumonia due to COVID-19 virus: Patient presented with Respiratory symptoms, Weakness, cough, fevers on June 06 Was tested positive for Covid on June 10 CT PE obtained in the ED on June 10, negative for PE Lung imaging with interstitial opacities, consistent with viral pneumonia Now presents due to worsening symptoms Received Decadron in the ED, will continue for up to 10 days While on steroids, will give PPI At home had a coughing fit, and reportedly desaturated to high 80s. Currently saturating in 90s% on room air Symptoms since June 06, and saturating on room air well, therefore did not start remdesivir procalcitonin negative inflammatory markers elevated Encourage incentive spirometry, flutter valve, provide guaifenesin DuoNebs Lovenox 60 twice daily Continue to closely monitor, use supplemental oxygen as needed to keep O2 sats at or above 92% Patient desaturated to high 80s this morning, continues to have persistent fever, will start remdesevir and doxycycline she however feels improved and has better appetite (3) Nausea: -Seems to be secondary to above infection -Given Zofran in the ED, provide Zofran as needed - now resolved, pt is eating w/o difficulty (4) MATTY (generalized anxiety disorder): -Continue home duloxetine Morbid obesity BMI above 40 Counseling and lifestyle education recommended Follow-up with PCP DVT prophylaxis: Lovenox Dispo: Med telemetry CODE STATUS full Admission and Anticipated Discharge Date Admission Date: June 16, 2020 Subjective Patient seen in follow-up of COVID-19 pneumonia, hypoxia, fever She is feeling better overall, but desaturated this morning, having coughing spells, and persistent fever Her appetite has improved No chest pain no abdominal pain We will start remdesivir due to hypoxia, persistent fever, will obtain a nocturnal hypoxia study and 2 step in the morning Review of Systems Review of Systems: All systems reviewed & are unremarkable except as noted in HPI & below Constitutional: + fever Respiratory: + cough and + dyspnea (improved) Cardiovascular: no chest pain and no palpitations Gastrointestinal: no abdominal pain, no nausea and no vomiting Physical Exam Constitutional: WD/WN, vitals as above + obese; no acute distress Eyes: PERRL, conjunctivae normal, anicteric sclerae ENMT: external ear and nose normal, oropharynx normal Neck: trachea midline, no thyromegaly normal visual inspection and + thick neck Respiratory: normal respiratory effort, lungs clear to auscultation no respiratory distress and does not use accessory muscles Auscultation: no crackles, no rhonchi and no wheezes Cardiovascular: RRR, no murmur, no edema Chest (Breasts): Chest: normal inspection of chest Gastrointestinal (Abdomen): Inspection/Auscultation: abdomen normal to inspection (+ obese abdomen) and normal bowel sounds; abdomen not distended Percussion/Palpation: abdomen soft; abdomen nontender, no guarding and abdomen not rigid Musculoskeletal: Head/Neck/Chest: normocephalic, head atraumatic and neck supple Skin: no rashes, warm and dry Neurologic: PERRL, EOMI, accommodation nl, no face palsy, no dysarthria moves all extremities Psychiatric: A+Ox3, euthymic affect Genitourinary: no CVA tenderness Lymphatic: no lymphedema Results & Data Results & Data ([facility]) Vital Signs (Past 12 Hours) Vital Signs Temp Pulse Resp BP Pulse Ox 06/18/20 07:12 95 H 20 89 L 06/18/20 07:04 38.4 C H 99 H 20 120/72 89 L 06/18/20 03:33 37.4 C 90 20 155/79 H 91 06/17/20 23:10 37.2 C 81 20 140/69 93 06/17/20 19:41 37.3 C 101 H 20 170/79 H 92 Laboratory Results 06/18/20 06/18/20 06/18/20 Range/Units 05:59 05:57 05:57 WBC 8.07 (4.8-10.8) K/uL RBC 4.52 (4.2-5.4) M/uL Hgb 12.5 (12.0-16.0) g/dL Hct 37.9 (37-47) % MCV 83.8 (80-100) fL MCH 27.7 (25-34) pg MCHC 33.0 (32-36) g/dL RDW Std Deviation 44.9 (36.4-46.3) fL RDW Coeff of Rayo 14.5 (11.5-14.5) % Plt Count 220 (130-400) K/uL MPV 11.2 H (7.4-10.4) fL Sodium 137 (136-145) mmol/L Potassium 3.9 (3.5-5.1) mmol/L Chloride 106 (98-107) mmol/L Carbon Dioxide 26 (21-32) mmol/L Anion Gap 6.0 (3-11) BUN 11 (7-18) mg/dl Creatinine 0.81 (0.6-1.2) mg/dl Est Cr Clr Drug Dosing 119.0 ml/min Est GFR ( Amer) 107.5 Est GFR (Non-Af Amer) 92.8 BUN/Creatinine Ratio 13.4 (10-20) Glucose 101 H (70-99) mg/dl Calcium 8.1 L (8.5-10.1) mg/dl Phosphorus 2.5 (2.5-4.9) mg/dl Magnesium 2.2 (1.8-2.4) mg/dl Procalcitonin < 0.05 (0-0.5) ng/ml Medications Administered Current Inpatient Medications Acetaminophen (Acetaminophen 325 Mg Tab) 650 mg PO Q4H PRN PRN Reason: Pain or Fever Stop: 07/16/20 14:16 Last Admin: 06/18/20 07:23 Dose: 650 mg Documented by: Duloxetine HCl (Duloxetine Hcl 60 Mg Cap) 60 mg PO DAILY [facility] Stop: 07/17/20 08:59 Last Admin: 06/18/20 07:24 Dose: 60 mg Documented by: Enoxaparin Sodium (Enoxaparin Inj 60 Mg/0.6 Ml Syr) 60 mg SQ Q12H [facility] Stop: 07/16/20 15:59 Last Admin: 06/18/20 04:25 Dose: 60 mg Documented by: Guaifenesin (Guaifenesin 600 Mg Tabcr) 600 mg PO Q12 [facility] Stop: 07/16/20 20:59 Last Admin: 06/18/20 07:24 Dose: 600 mg Documented by: Dexamethasone 6 mg/ Syringe 1.5 mls @ 1 mls/min IV Q24H [facility] Stop: 07/17/20 08:59 Last Admin: 06/18/20 07:27 Dose: 1 mls/min Documented by: Remdesivir 200 mg/ Sodium (Chloride) 250 mls @ 125 mls/hr IV ONE STA; Protocol Stop: 06/18/20 09:27 Levalbuterol HCl (Levalbuterol Hcl 1.25 Mg/3 Ml Neb) 1.25 mg NEB QIDR [facility] Stop: 07/17/20 10:59 Last Admin: 06/18/20 07:11 Dose: 1.25 mg Documented by: Lorazepam (Lorazepam 0.5 Mg Tab) 0.5 mg PO BID PRN PRN Reason: Anxiety Stop: 07/16/20 15:28 Last Admin: 06/18/20 07:27 Dose: 0.5 mg Documented by: Ondansetron HCl (Ondansetron Inj 2 Mg/Ml 2 Ml Vial) 2 mg IV Q4H PRN PRN Reason: Nausea Stop: 07/16/20 14:16 Pantoprazole Sodium (Pantoprazole 40 Mg Tab) 40 mg PO QAM [facility] Stop: 07/16/20 14:44 Last Admin: 06/18/20 07:24 Dose: 40 mg Documented by: Polyethylene Glycol (Polyethylene (Miralax) 17 Gm Pack) 17 gm PO DAILY PRN PRN Reason: Constipation Stop: 07/16/20 14:16 Sodium Chloride (Sodium Chloride 0.9% 10ml Flush) 30 ml IV Q24H [facility] Stop: 06/22/20 07:31
[2020-06-18 07:32] LABS: BUN Creatinine Ratio 13.4 (10-20); Calcium 8.1 mg/dl (8.5-10.1); Est GFR (African American) 107.5; Est GFR (Non-African American) 92.8; Magnesium 2.2 mg/dl (1.8-2.4); Potassium 3.9 mmol/L (3.5-5.1)
[2020-06-18 07:33] LABS: Phosphorus 2.5 mg/dl (2.5-4.9)
[2020-06-18] MEDS ORDERED: REMDESIVIR 200 MG in SODIUM CHLORIDE 0.9% 210 ML IV ONE (08:00)
[2020-06-18] MEDS: SODIUM CHLORIDE 0.9% 10ML FLUSH IV SCH (11:00)
[2020-06-18] MEDS: DOXYCYCLINE HYCLATE 100 MG CAP PO SCH ×2 (13:01→22:08)
[2020-06-18] MEDS: ADVANCED PROBIOTIC 1250 MG CAPSULE PO SCH (13:02)
[2020-06-19] MEDS: ENOXAPARIN INJ 60 MG/0.6 ML SYR SQ SCH (05:06)
[2020-06-19 06:17] LABS: Hematocrit (blood only) 38.6 % (37-47); Hemoglobin 12.6 g/dL (12.0-16.0); Mean Corpuscular Hemoglobin 27.6 pg (25-34); Mean Corpuscular Hgb Conc 32.6 g/dL (32-36); Mean Corpuscular Volume 84.6 fL (80-100); Mean Platelet Volume 10.6 fL (7.4-10.4); Platelet Count 242 K/uL (130-400); RDW Coefficient of Variation 14.6 % (11.5-14.5); RDW Standard Deviation 45.3 fL (36.4-46.3); Red Blood Count 4.56 M/uL (4.2-5.4); White Blood Count 6.12 K/uL (4.8-10.8)
[2020-06-19 06:44] LABS: BUN Creatinine Ratio 16.8 (10-20); Calcium 8.5 mg/dl (8.5-10.1); Creatinine Clr Calc Pharmacy 133.8 ml/min; Est GFR (African American) 126.1; Est GFR (Non-African American) 108.8; Magnesium 2.5 mg/dl (1.8-2.4); Potassium 3.7 mmol/L (3.5-5.1)
[2020-06-19] MEDS: LEVALBUTEROL HCL 1.25 MG/3 ML NEB NEB SCH ×3 (08:09→15:14)
[2020-06-19] MEDS: dexAMETHasone 6 MG in SYRINGE 0 ML IV SCH (08:36)
[2020-06-19] MEDS: DOXYCYCLINE HYCLATE 100 MG CAP PO SCH (08:38)
[2020-06-19] MEDS: ADVANCED PROBIOTIC 1250 MG CAPSULE PO SCH (08:39)
[2020-06-19] MEDS: guaiFENesin 600 MG TABCR PO SCH (08:39)
[2020-06-19] MEDS: PANTOprazole 40 MG TAB PO SCH (08:39)
[2020-06-19] MEDS: DULoxetine HCL 60 MG CAP PO SCH (08:39)
[2020-06-19] MEDS ORDERED: POTASSIUM CHLORIDE CRTAB 20 MEQ TABCR PO STA (08:58)
--- NOTE | 2020-06-19 09:52 | Hospitalist Progress Note ---
Date of Service June 19, 2020 Assessment & Plan (1) Acute hypoxemic respiratory failure: (2) Pneumonia due to COVID-19 virus: Patient presented with Respiratory symptoms, Weakness, cough, fevers on June 06 Was tested positive for Covid on June 10 CT PE obtained in the ED on June 10, negative for PE Lung imaging with interstitial opacities, consistent with viral pneumonia Now presents due to worsening symptoms Received Decadron in the ED, will continue for up to 10 days While on steroids, will give PPI At home had a coughing fit, and reportedly desaturated to high 80s. Currently saturating in 90s% on room air Symptoms since June 06, and saturating on room air well, therefore did not start remdesivir procalcitonin negative inflammatory markers elevated Encourage incentive spirometry, flutter valve, provide guaifenesin DuoNebs Lovenox 60 twice daily Continue to closely monitor, use supplemental oxygen as needed to keep O2 sats at or above 92% Patient desaturated to high 80s in the morning, continued to have persistent fever, started remdesevir and doxycycline she however feels improved and has better appetite 5/4 - patient reports feeling much better, cough has improved, and she is now afebrile she is inquiring about going home 2 step study done and nocturnal study done, patient will need 2 L with ambulation, room air at rest, 2 L with sleep (3) Nausea: -Seems to be secondary to above infection -Given Zofran in the ED, provide Zofran as needed - now resolved, pt is eating w/o difficulty (4) MATTY (generalized anxiety disorder): -Continue home duloxetine Morbid obesity BMI above 40 Counseling and lifestyle education recommended Follow-up with PCP DVT prophylaxis: Lovenox Dispo: Med telemetry CODE STATUS full Admission and Anticipated Discharge Date Admission Date: June 16, 2020 Subjective Patient seen in follow-up of COVID-19 pneumonia, hypoxia, fever She is feeling much better overall, but desaturating at times Her appetite has also improved No chest pain no abdominal pain 2 step study done, patient needs 2 L with ambulation, room air at rest, nocturnal study also done and patient needs 2 L at night. Review of Systems Review of Systems: All systems reviewed & are unremarkable except as noted in HPI & below Constitutional: no fever and no chills Respiratory: + cough and + dyspnea (improved) Cardiovascular: no chest pain and no palpitations Gastrointestinal: no abdominal pain, no nausea and no vomiting Physical Exam Constitutional: WD/WN, vitals as above + obese; no acute distress Eyes: PERRL, conjunctivae normal, anicteric sclerae ENMT: external ear and nose normal, oropharynx normal Neck: trachea midline, no thyromegaly normal visual inspection and + thick neck Respiratory: normal respiratory effort, lungs clear to auscultation no respiratory distress and does not use accessory muscles Auscultation: no crackles, no rhonchi and no wheezes Cardiovascular: RRR, no murmur, no edema Chest (Breasts): Chest: normal inspection of chest Gastrointestinal (Abdomen): Inspection/Auscultation: abdomen normal to inspection (+ obese abdomen) and normal bowel sounds; abdomen not distended Percussion/Palpation: abdomen soft; abdomen nontender, no guarding and abdomen not rigid Musculoskeletal: Head/Neck/Chest: normocephalic, head atraumatic and neck supple Skin: no rashes, warm and dry Neurologic: PERRL, EOMI, accommodation nl, no face palsy, no dysarthria moves all extremities Psychiatric: A+Ox3, euthymic affect Genitourinary: no CVA tenderness Lymphatic: no lymphedema Results & Data Results & Data ([facility]) Vital Signs (Past 12 Hours) Vital Signs Temp Pulse Pulse Pulse Pulse Pulse Pulse 06/19/20 08:11 70 77 66 58 L 06/19/20 08:10 60 06/19/20 07:39 36.6 C 65 06/19/20 07:00 64 06/19/20 03:21 36.6 C 64 06/18/20 23:13 37.1 C 79 06/18/20 22:20 65 Resp Resp Resp Resp Resp BP Pulse Ox 06/19/20 08:11 18 24 18 20 06/19/20 08:10 20 96 06/19/20 07:39 20 103/71 91 06/19/20 07:00 06/19/20 03:21 20 143/82 H 93 06/18/20 23:13 20 149/81 H 90 06/18/20 22:20 Pulse Ox Pulse Ox Pulse Ox Pulse Ox 06/19/20 08:11 96 85 L 93 92 06/19/20 08:10 06/19/20 07:39 06/19/20 07:00 06/19/20 03:21 06/18/20 23:13 06/18/20 22:20 96 Laboratory Results 06/19/20 06/19/20 Range/Units 05:25 05:25 WBC 6.12 (4.8-10.8) K/uL RBC 4.56 (4.2-5.4) M/uL Hgb 12.6 (12.0-16.0) g/dL Hct 38.6 (37-47) % MCV 84.6 (80-100) fL MCH 27.6 (25-34) pg MCHC 32.6 (32-36) g/dL RDW Std Deviation 45.3 (36.4-46.3) fL RDW Coeff of Rayo 14.6 H (11.5-14.5) % Plt Count 242 (130-400) K/uL MPV 10.6 H (7.4-10.4) fL Sodium 140 (136-145) mmol/L Potassium 3.7 (3.5-5.1) mmol/L Chloride 107 (98-107) mmol/L Carbon Dioxide 29 (21-32) mmol/L Anion Gap 3.0 (3-11) BUN 12 (7-18) mg/dl Creatinine 0.71 (0.6-1.2) mg/dl Est Cr Clr Drug Dosing 133.8 ml/min Est GFR ( Amer) 126.1 Est GFR (Non-Af Amer) 108.8 BUN/Creatinine Ratio 16.8 (10-20) Glucose 105 H (70-99) mg/dl Calcium 8.5 (8.5-10.1) mg/dl Magnesium 2.5 H (1.8-2.4) mg/dl Medications Administered Current Inpatient Medications Acetaminophen (Acetaminophen 325 Mg Tab) 650 mg PO Q4H PRN PRN Reason: Pain or Fever Stop: 07/16/20 14:16 Last Admin: 06/18/20 22:11 Dose: 650 mg Documented by: Doxycycline Hyclate (Doxycycline Hyclate 100 Mg Cap) 100 mg PO BID [facility] Stop: 06/25/20 11:14 Last Admin: 06/19/20 08:38 Dose: 100 mg Documented by: Duloxetine HCl (Duloxetine Hcl 60 Mg Cap) 60 mg PO DAILY [facility] Stop: 07/17/20 08:59 Last Admin: 06/19/20 08:39 Dose: 60 mg Documented by: Enoxaparin Sodium (Enoxaparin Inj 60 Mg/0.6 Ml Syr) 60 mg SQ Q12H [facility] Stop: 07/16/20 15:59 Last Admin: 06/19/20 05:06 Dose: 60 mg Documented by: Guaifenesin (Guaifenesin 600 Mg Tabcr) 600 mg PO Q12 [facility] Stop: 07/16/20 20:59 Last Admin: 06/19/20 08:39 Dose: 600 mg Documented by: Dexamethasone 6 mg/ Syringe 1.5 mls @ 1 mls/min IV Q24H [facility] Stop: 07/17/20 08:59 Last Admin: 06/19/20 08:36 Dose: 1 mls/min Documented by: Remdesivir 100 mg/ Sodium (Chloride) 250 mls @ 250 mls/hr IV Q24H [facility]; Protocol Stop: 06/22/20 12:59 Lactobacillus Acidoph/Casei/Rhamnos (Advanced Probiotic 1250 Mg Capsule) 2 cap PO DAILY [facility] Stop: 07/18/20 11:29 Last Admin: 06/19/20 08:39 Dose: 2 cap Documented by: Levalbuterol HCl (Levalbuterol Hcl 1.25 Mg/3 Ml Neb) 1.25 mg NEB QIDR [facility] Stop: 07/17/20 10:59 Last Admin: 06/19/20 08:09 Dose: 1.25 mg Documented by: Lorazepam (Lorazepam 0.5 Mg Tab) 0.5 mg PO BID PRN PRN Reason: Anxiety Stop: 07/16/20 15:28 Last Admin: 06/18/20 22:11 Dose: 0.5 mg Documented by: Ondansetron HCl (Ondansetron Inj 2 Mg/Ml 2 Ml Vial) 2 mg IV Q4H PRN PRN Reason: Nausea Stop: 07/16/20 14:16 Pantoprazole Sodium (Pantoprazole 40 Mg Tab) 40 mg PO QAM [facility] Stop: 07/16/20 14:44 Last Admin: 06/19/20 08:39 Dose: 40 mg Documented by: Polyethylene Glycol (Polyethylene (Miralax) 17 Gm Pack) 17 gm PO DAILY PRN PRN Reason: Constipation Stop: 07/16/20 14:16 Sodium Chloride (Sodium Chloride 0.9% 10ml Flush) 30 ml IV Q24H [facility] Stop: 06/22/20 12:01 Last Admin: 06/18/20 11:00 Dose: 30 ml Documented by:
[2020-06-19] MEDS: SODIUM CHLORIDE 0.9% 10ML FLUSH IV SCH (10:08)
--- NOTE | 2020-06-19 10:18 | Discharge Summary ---
Date of Service June 19, 2020 Admission HPI Per Admitting Provider Mrs. Craig is a 39-year-old female, with history of generalized anxiety disorder, obesity, who presents in the ED due to shortness of breath and known COVID-19 infection. She has had respiratory symptoms, fever, nausea and weakness associated with COVID-19 infection since June 06. She was tested positive for COVID-19 on June 10 in the ED. At that time chest x-ray and CT PE was obtained. CT PE was negative for pulmonary emboli and her lung imaging was consistent with viral pneumonia. She was discharged home, notified her PCP and prednisone was also prescribed for the patient. However patient reports not having instructions for prednisone and therefore she never took it. In the ED she was prescribed albuterol inhaler and reports that it's been helping her however sometimes she feels too weak to use the inhaler. She says she is has better days and some worse days, this morning was really bad for her as she was quite dyspneic, had a coughing fit, desaturated into high 80s. She then contacted her PCP's office again and was recommended to present to the ED. In the emergency room chest x-ray was repeated again and showed unchanged ill- defined interstitial opacities suspicious for interstitial pneumonitis, bilateral hilar prominence suggestive of adenopathy. She was started on Decadron, also was given Tylenol, Zofran and Toradol and IV fluids. Reportedly she was quite tachypneic, had conversational dyspnea, and also reported nausea. Currently she says that she feels better. And reports breathing is easier. Admission Exam Per Admitting Provider Constitutional: WD/WN, vitals as above + obese; no acute distress Eyes: PERRL, conjunctivae normal, anicteric sclerae ENMT: external ear and nose normal, oropharynx normal Neck: trachea midline, no thyromegaly normal visual inspection and + thick neck Respiratory: normal respiratory effort, lungs clear to auscultation no respiratory distress and does not use accessory muscles Auscultation: + rhonchi (mild diffuse); no crackles and no wheezes Cardiovascular: RRR, no murmur, no edema Chest (Breasts): Chest: normal inspection of chest Gastrointestinal (Abdomen): Inspection/Auscultation: abdomen normal to inspection (+ obese abdomen) and normal bowel sounds; abdomen not distended Percussion/Palpation: abdomen soft; abdomen nontender, no guarding and abdomen not rigid Musculoskeletal: Head/Neck/Chest: normocephalic, head atraumatic and neck supple Skin: no rashes, warm and dry Neurologic: PERRL, EOMI, accommodation nl, no face palsy, no dysarthria moves all extremities Psychiatric: A+Ox3, euthymic affect Genitourinary: no CVA tenderness Lymphatic: no lymphedema Principal Diagnosis Acute hypoxic respiratory failure secondary to COVID-19 pneumonia Discharge Exam Constitutional WD/WN, vitals as above + obese; no acute distress Eyes PERRL, conjunctivae normal, anicteric sclerae ENMT external ear and nose normal, oropharynx normal Neck trachea midline, no thyromegaly normal visual inspection and + thick neck Respiratory normal respiratory effort, lungs clear to auscultation no respiratory distress and does not use accessory muscles Auscultation: no crackles, no rhonchi and no wheezes Cardiovascular RRR, no murmur, no edema Chest (Breasts) Chest: normal inspection of chest Gastrointestinal (Abdomen) Inspection/Auscultation: abdomen normal to inspection (+ obese abdomen) and normal bowel sounds; abdomen not distended Percussion/Palpation: abdomen soft; abdomen nontender, no guarding and abdomen not rigid Musculoskeletal Head/Neck/Chest: normocephalic, head atraumatic and neck supple Skin no rashes, warm and dry Neurologic PERRL, EOMI, accommodation nl, no face palsy, no dysarthria moves all extremities Psychiatric A+Ox3, euthymic affect Genitourinary no CVA tenderness Lymphatic no lymphedema Discharge Data Allergies Allergy/AdvReac Type Severity Reaction Status Date / Time Penicillins Allergy Intermediate Unknown Verified 06/14/20 19:21 sertraline Allergy Mild eyes dilate Verified 06/14/20 19:21 Consultations 06/16/20 14:10 ED Decision to Admit Stat Hospital Course (1) Acute hypoxemic respiratory failure: (2) Pneumonia due to COVID-19 virus: Patient presented with Respiratory symptoms, Weakness, cough, fevers on June 06 Was tested positive for Covid on June 10 CT PE obtained in the ED on June 10, negative for PE Lung imaging with interstitial opacities, consistent with viral pneumonia Now presents due to worsening symptoms Received Decadron in the ED, will continue for up to 10 days While on steroids, will give PPI At home had a coughing fit, and reportedly desaturated to high 80s. Currently saturating in 90s% on room air Symptoms since June 06, and saturating on room air well, therefore did not start remdesivir procalcitonin negative inflammatory markers elevated Encourage incentive spirometry, flutter valve, provide guaifenesin DuoNebs Lovenox 60 twice daily Continue to closely monitor, use supplemental oxygen as needed to keep O2 sats at or above 92% Patient desaturated to high 80s in the morning, continued to have persistent fever, started remdesevir and doxycycline she however feels improved and has better appetite / - patient reports feeling much better, cough has improved, and she is now afebrile she is inquiring about going home 2 step study done and nocturnal study done, patient will need 2 L with ambulation, room air at rest, 2 L with sleep (3) Nausea: -Seems to be secondary to above infection -Given Zofran in the ED, provide Zofran as needed - now resolved, pt is eating w/o difficulty (4) MATTY (generalized anxiety disorder): -Continue home duloxetine Morbid obesity BMI above 40 Counseling and lifestyle education recommended Follow-up with PCP DVT prophylaxis: Lovenox Dispo: Med telemetry CODE STATUS full Total Time Total Time Spent Total Time Spent (In Minutes): 35 Total Time Includes: Examination of the Patient, Discharge Planning and Medication Reconciliation Discharge Plan Discharge Items Patient Disposition: Home - Self-Care Reason For Visit: COVID 19 PNA, HYPOXIA Discharge Diagnosis: Acute hypoxic respiratory failure secondary to COVID-19 pneumonia Activity: Per Instructions section Non-emergency contact: Primary Care Provider Call non-emergency contact if: you have any medication questions and your symptoms worsen Follow-up/Referrals: Scott Ley DO [Primary Care Provider] - (Date & Time 06/25/2020 1:40 PM Provider Scott Ley DO Department [facility] PLEASE NOTE THAT THIS IS A TELEHEALTH APPOINTMENT. PLEASE FOLLOW THE INSTRUCTIO NS PROVIDED IN YOUR EMAIL. IF YOU HAVE ANY QUESTIONS REGARDING THIS APPOINTMENT, PLEASE CALL ) Diet: Heart Healthy Addtl Attending Provider Instructions: Follow up with your primary care doctor, the appointment was scheduled for you for June 25. This may be a telemedicine visit. Take Decadron and doxycycline as prescribed. Can use albuterol inhaler as needed as prescribed. Continue using your flutter valve and incentive spirometry. Please read further information about COVID-19 infection and isolation below. Discuss further with your primary care doctor about when you should get vaccinated for COVID-19. Addtl [employer] Provider Instructions: Coronavirus disease 2019 (COVID-19) is a virus that causes a respiratory illness. It is caused by a coronavirus called 2019 novel coronavirus (2019- nCoV). There are many types of coronavirus. Coronaviruses are a very common cause of bronchitis. They may sometimes cause lung infection(pneumonia). Symptoms can range from mild to severe respiratory illness. These viruses are also foundin some animals. COVID-19 was first found in people in [facility], in late 2018. In 2020, several cases of COVID-19 have been confirmed in the [place] Public health officials are working to find the source. How the virus spreads is not yet fully known. It may be spread through droplets of fluid that a person coughs or sneezes into the air. It may be spread if you touch a surface with virus on it, such as a handle or object, and then touch your mouth. What are the symptoms of COVID-19? Some people have no symptoms or mild symptoms. Symptoms may appear 2 to 14 days after contact with the virus. Symptoms can include: Fever Coughing Trouble breathing What are possible complications from COVID-19? In many cases, this virus can cause infection (pneumonia) in both lungs. In some cases, this can cause . How is COVID-19 diagnosed? Your healthcare provider will ask about your symptoms. He or she will also ask about your recent travel and contact with sick people. Testing for the virus is only done through the CDC. If yourhealthcare provider thinks you may have COVID- 19, he or she will work with your local health department and the CDC on testing. Follow all instructions from your healthcare provider. COVID-19 is diagnosed by: Nasal and throat swab. A cotton-tipped swab is wiped inside your nose or throat. This is done to check for viruses in your nasal mucus. Sputum culture. A small sample of mucus coughed from your lungs (sputum) is collected if you have a cough. It is checked for the virus. How is COVID-19 treated? There is currently no medicine to treat the virus. Treatment is done to help your body while it fights the virus. This is known as supportive care. Supportive care may include: Pain medicine. These include acetaminophen and ibuprofen. They are used to help ease pain and reduce fever. Bed rest. This helps your body fight the illness. For severe illness, you may need to stay in the hospital. Care during severe illness may include: IV (intravenous) fluids.These are given through a vein to help keep your body hydrated. Oxygen. Supplemental oxygen or ventilation with a breathing machine (ventilat or) may be given. This is done to keep enough oxygen in your body. Are you at risk for COVID-19? If youve been to a place where people have been sick with this virus, you are at risk for infection. You are at risk if you: Recently traveled to an affected area Had contact with a sick person who recently traveled to this area Had contact with a person who was diagnosed with COVID-19 How can COVID-19 be prevented? There is no vaccine yet. The best prevention is to not have contact with the virus. The CDC advises that people should not travel to areas where there are COVID-19 outbreaks right now for any reason that is not urgent. To help prevent spreading the infection, wash your hands often, or use an alcohol-basedhand associate. If you are in an area with COVID-19: Wash your hands often. Or use an alcohol-based hand associate often. Only touch your eyes, nose, or mouth with clean hands. Dont have contact with people who are sick. Follow local instructions about being in public. For example, you may be told to not use public transport for a period of time. Stay away from markets that have live or animals. Wash your hands after touching any animals. Don't touch animals that may be sick. Dont share eating or drinking tools with sick people. Dont kiss someone who is sick. Clean surfaces often with disinfectant. If you were in an area with COVID-19 in the last 14 days: Call your healthcare provider. He or she can talk with local health staff to see what action may be needed. Follow all instructions from your provider. Take your temperature every morning and evening for at least 14 days. This is to check for fever. Keep a record of the readings. Keep watch for symptoms of the virus. Tell your provider right away if you have symptoms. If you were in an area with COVID-19 and have a fever or other symptoms: Dont panic. Keep in mind that other illnesses can cause similar symptoms. Stay away from work, school, and public places. Limit physical contact with family members. Don't kiss anyone or share eating or drinking utensils. Clean surfaces you touch with disinfectant. This is to help prevent the virus from spreading. Call your healthcare provider. Explain that you have been exposed to COVID-19 and have symptoms. Do this before going to any hospital. Wait for instructions. Keep in mind that healthcare staff may wear protective equipment such as masks, gowns, gloves, and eye protection. You may be put in a separate room. This is to prevent the possible virus from spreading. Tell the healthcare staff about recent travel. This includes local travel on public transport. Staff may need to find other people you have been in contact with. Follow all instructions the healthcare staff give you. If you have been diagnosed with COVID-19 Follow all instructions from your healthcare provider. Dont leave your home, except to get medical care. Call your healthcare providers office before going. They can prepare and give you instructions. This will help prevent the virus from spreading. Dont go to work, school, or public areas. Dont use public transport or taxis. Stay away from other people in your home. Have them wear face masks around you. Dont share household items or food. Wear a face mask if you can. This includes at home or in a medical facility. Cover your face with a tissue when you cough or sneeze. Throw the tissue away. Wash your hands. Wash your hands often. Caregivers should: Follow all instructions from healthcare staff. Wear a face mask and protective clothing as advised. Wash hands often. Keep track of the sick persons symptoms. Clean surfaces, fabrics, and laundry thoroughly. Keep other people away from the sick person. When to call your healthcare provider Call your healthcare provider: If youve recently traveled and have symptoms If you have been diagnosed with COVID-19 and your symptoms are worse To learn more To find out more about COVID-19, visit the CDC website at www.cdc.gov/coronavirus/2019-ncov/index.html. 6780-[address] [employer] [place] [address]. All rights reserved. This information is not intended as a substitute for professional medical care. Always follow your healthcare professional's instructions. This information has been adapted from [employer] Home Isolation COVID-19 Instructions The following information about Home Isolation is from the CDC Website: https://www.cdc.gov/coronavirus/2019-ncov/hcp/xyiltarq-yitnvmn-czbxkf.html Stay home except to get medical care People who are mildly ill with COVID-19 are able to isolate at home during their illness. You should restrict activities outside your home, except for getting medical care. Do not go to work, school, or public areas. Avoid using public transportation, ride-sharing, or taxis. Separate yourself from other people and animals in your home People: As much as possible, you should stay in a specific room and away from other people in your home. Also, you should use a separate bathroom, if available. Animals: You should restrict contact with pets and other animals while you are sick with COVID-19, just like you would around other people. Although there have not been reports of pets or other animals becoming sick with COVID-19, it is still recommended that people sick with COVID-19 limit contact with animals until more information is known about the virus. When possible, have another member of your household care for your animals while you are sick. If you are sick with COVID-19, avoid contact with your pet, including petting, snuggling, being kissed or licked, and sharing food. If you must care for your pet or be around animals while you are sick, wash your hands before and after you interact with pets and wear a face mask. Call ahead before visiting your doctor If you have a medical appointment, call the healthcare provider and tell them that you have or may have COVID-19. This will help the healthcare providers office take steps to keep other people from getting infected or exposed. Wear a face mask You should wear a face mask when you are around other people (e.g., sharing a room or vehicle) or pets and before you enter a healthcare providers office. If you are not able to wear a face mask (for example, because it causes trouble breathing), then people who live with you should not stay in the same room with you, or they should wear a face mask if they enter your room. Cover your coughs and sneezes Cover your mouth and nose with a tissue when you cough or sneeze. Throw used tissues in a lined trash can. Immediately wash your hands with soap and water for at least 20 seconds or, if soap and water are not available, clean your hands with an alcohol-based hand associate that contains at least 60% alcohol. Clean your hands often Wash your hands often with soap and water for at least 20 seconds, especially after blowing your nose, coughing, or sneezing; going to the bathroom; and before eating or preparing food. If soap and water are not readily available, use an alcohol-based hand associate with at least 60% alcohol, covering all surfaces of your hands and rubbing them together until they feel dry. Soap and water are the best option if hands are visibly dirty. Avoid touching your eyes, nose, and mouth with unwashed hands. Avoid sharing personal household items You should not share dishes, drinking glasses, cups, eating utensils, towels, or bedding with other people or pets in your home. After using these items, they should be washed thoroughly with soap and water. Clean all high-touch surfaces everyday High touch surfaces include counters, tabletops, doorknobs, bathroom fixtures, toilets, phones, keyboards, tablets, and bedside tables. Also, clean any surfaces that may have blood, stool, or body fluids on them. Use a household cleaning spray or wipe, according to the label instructions. Labels contain instructions for safe and effective use of the cleaning product including precautions you should take when applying the product, such as wearing gloves and making sure you have good ventilation during use of the product. Monitor your symptoms Seek prompt medical attention if your illness is worsening (e.g., difficulty breathing).Beforeseeking care, call your healthcare provider and tell them that you have, or are being evaluated for, COVID-19. Put on a face mask before you enter the facility. These steps will help the healthcare providers office to keep other people in the office or waiting room from getting infected or exposed. Ask your healthcare provider to call the local or state health department. Persons who are placed under active monitoring or facilitated self- monitoring should follow instructions provided by their local health department or occupational health professionals, as appropriate. When working with your local health department check their available hours. If you have a medical emergency and need to call 911, notify the dispatch personnel that you have, or are being evaluated for COVID-19. If possible, put on a face mask before emergency medical services arrive. Discontinuing home isolation Patients with confirmed COVID-19 should remain under home isolation precautions until the risk of secondary transmission to others is thought to be low. The decision to discontinue home isolation precautions should be made on a [id number] basis, in consultation with healthcare providers and formerly [facility] and local health departments. Pending Studies at Discharge: No Stand-Alone Forms: My [facility], Smoking Cessation Medications and DC Order Prescriptions: New doxycycline hyclate 100 mg Capsule 100 mg PO BID 4 Days Qty: 8 RF: 0 Advanced Probiotic 625 mg (10 billion cell) Capsule 2 cap PO DAILY Qty: 14 RF: 0 pantoprazole 40 mg Tablet,Delayed Release (Dr/Ec) 40 mg PO QAM Qty: 10 RF: 0 guaifenesin [Mucinex] 600 mg Tablet Extended Release 12hr 600 mg PO Q12 Qty: 14 RF: 0 dexamethasone [Decadron] 6 mg tablet 6 mg PO DAILY Qty: 4 RF: 0 albuterol sulfate 90 mcg/actuation HFA aerosol inhaler 2 inh inhalation Q6H PRN (Reason: shortness of breath or wheezing) Qty: 8.5 RF: 0 Continued acetaminophen [Tylenol Extra Strength] 500 mg Tablet 1,000 mg PO Q6H PRN (Reason: Pain) RF: 0 ibuprofen [Advil] 200 mg Tablet 200 mg PO Q6H PRN (Reason: Pain) RF: 0 lorazepam 0.5 mg tablet 0.5 mg PO BID PRN (Reason: Anxiety) RF: 0 duloxetine 60 mg capsule,delayed release(DR/EC) 60 mg PO DAILY RF: 0 ondansetron 4 mg tablet,disintegrating 4 mg PO Q8H PRN (Reason: nausea and vomiting) Qty: 12 RF: 0 albuterol sulfate 90 mcg/actuation HFA aerosol inhaler 2 inh inhalation Q6H PRN (Reason: shortness of breath or wheezing) Qty: 8.5 RF: 0 Discharge Orders: Discharge Order (Routine); Ordered 06/19/20 Ordered By: Phu Perez Admission Data Admit Date/Time: 06/16/20 14:17 Attending Provider: Ricki Martino Admit Provider: Phu Perez Primary Care Provider: Scott Ley Other Providers: Phu Perez
[2020-06-19] MEDS ORDERED: REMDESIVIR 100mg: Days 2-5 IV SCH (12:00)
== END 2020-06-19 15:44 | disposition home or self-care (01) | DRG 177 ==
LOC: ED 11:21 → SUATTDRO 14:17 → 2E 14:17